=== PATIENT | female | born 1955 | race Caucasian/White ===

== ENCOUNTER 2022-07-23 09:31 | Outpatient (CLI) | payer MEDICARE, BC, SELFPAY ==
--- NOTE | 2022-07-23 09:45 | CRLHL7_ITS ---
For Patients: As a result of the Century Cures Act, medical imaging exams and procedure reports are released immediately into your electronic medical record. You may view this report before your referring provider. If you have questions, please contact your health care provider. BILATERAL SCREENING MAMMOGRAM WITH COMPUTER-AIDED DETECTION AND TOMOSYNTHESIS TECHNIQUE: CC and MLO views were obtained. These mammographic images have been obtained using full-field digital technique. These mammographic images were interpreted with the benefit of computer-aided detection. Breast tomosynthesis was used in this interpretation. COMPARISON FILM: 05/13/21, 04/05/20, 09/20/18. FINDINGS: There are scattered areas of fibroglandular density. IMPRESSION: There is no radiographic evidence for malignancy. ASSESSMENT: BI-RADS Category 2: Benign RECOMMENDATION: Routine screening mammogram in 1 year. A lay language report of this examination will be provided to the patient. ZION MENARD M.D. Diagnostic/Nuclear Medicine Radiologist [email or web address] Transcribed: 2:[address]/Dictated by: Zion Menard MD @ 07/23/2022 11:26:00 AM (Electronically Signed)
== END 2022-07-23 09:32 | disposition home or self-care (01) ==
LOC: MAMMO 09:38
PROVIDERS: PCP Internal Medicine; Visit Provider Internal Medicine
DX: Z12.31 Encounter for screening mammogram for malignant neoplasm of breast (principal)
CPT/HCPCS: 77063; 77067

== ENCOUNTER 2022-12-15 09:18 | Outpatient (CLI) | payer MEDICARE, BC, SELFPAY | END 2022-12-15 09:19 | disposition home or self-care (01) | LOC: NFLDREF 21:40 | PROVIDERS: PCP Internal Medicine; Referring Provider Internal Medicine; Visit Provider Internal Medicine | DX: E03.9 Hypothyroidism, unspecified (principal); E78.5 Hyperlipidemia, unspecified; I10 Essential (primary) hypertension | CPT/HCPCS: 80053; 80061; 84443 ==

== ENCOUNTER 2022-12-29 09:21 | Outpatient (CLI) | payer MEDICARE, BC, SELFPAY | END 2022-12-29 09:22 | disposition home or self-care (01) | LOC: NFLDREF 01-01 09:56 | PROVIDERS: PCP Internal Medicine; Referring Provider Internal Medicine; Visit Provider Internal Medicine | DX: R32 Unspecified urinary incontinence (principal); D36.9 Benign neoplasm, unspecified site; I10 Essential (primary) hypertension; E03.9 Hypothyroidism, unspecified | CPT/HCPCS: 87086 ==

== ENCOUNTER 2023-03-15 08:26 | Outpatient (CLI) | payer MEDICARE, BC, SELFPAY ==
--- NOTE | 2023-03-15 06:33 | W.ANESCHARGE ---
Anesthesia Charges Start Date/Time Anesthesia Start Date: 03/15/23 Anesthesia Start Time: 09:10 Stop Date/Time Anesthesia Stop Date: 03/15/23 Anesthesia Stop Time: 09:35
--- NOTE | 2023-03-15 06:34 | PM.ANHP ---
HPI - Pre-Anesthesia History of Present Illness Time Seen by Provider: 08:48 Date Seen: 03/15/23 Date of service: 03/15/23 Source: patient and old records reviewed Review of Systems Status of ROS Reports: 10 or more systems reviewed and unremarkable except as noted in History and below [facility] Medical History (Updated 12/29/22 @ 10:03 by Anthony Madison MD) Tubular adenoma ?D36.9 - Benign neoplasm, unspecified site (ICD-10) Urinary incontinence ?R32 - Unspecified urinary incontinence (ICD-10) Hip pain ?M25.559 - Pain in unspecified hip (ICD-10) Hypertension ?I10 - Essential (primary) hypertension (ICD-10) Inflammation of right ear canal ?H60.91 - Unspecified otitis externa, right ear (ICD-10) Vulvar dermatitis ?L30.9 - Dermatitis, unspecified (ICD-10) Osteoarthritis (02/22/12) ?M19.90 - Unspecified osteoarthritis, unspecified site (ICD-10) Obesity ?E66.9 - Obesity, unspecified (ICD-10) Hypothyroidism (02/22/12) ?E03.9 - Hypothyroidism, unspecified (ICD-10) Hyperlipidemia (02/22/12) ?E78.5 - Hyperlipidemia, unspecified (ICD-10) Essential hypertension ?I10 - Essential (primary) hypertension (ICD-10) Depression ?F32.A - Depression, unspecified (ICD-10) Surgical History (Updated 04/02/22 @ 12:23 by Genia Nunez PA-C) History of nasal surgery ?Z98.890 - Other specified postprocedural states (ICD-10) S/P total knee arthroplasty ?Z96.659 - Presence of unspecified artificial knee joint (ICD-10) History of total knee replacement (02/22/12) ?Z96.659 - Presence of unspecified artificial knee joint (ICD-10) History of total hysterectomy (02/22/12) ?Z90.710 - Acquired absence of both cervix and uterus (ICD-10) History of carpal tunnel repair ?Z98.890 - Other specified postprocedural states (ICD-10) Social History Smoking Status: Never smoker Little interest or pleasure in doing things: more than half the days Feeling down, depressed, or hopeless: several days Meds Home Medications and Allergies Home Medications Medication Instructions Recorded Confirmed Type cholecalciferol (vitamin D3) 50 4,000 unit PO DAILY 04/02/22 12/29/22 History mcg (2,000 unit) tablet triamcinolone acetonide 0.1 % 1 applic topical QDAY PRN 08/12/22 12/29/22 History topical cream Allergies Allergy/AdvReac Type Severity Reaction Status Date / Time morphine Allergy Mild Vomiting Verified 12/29/22 09:38 Exam Const Documenting provider has reviewed patient's vital signs: yes Common normals: no apparent distress, oriented x3, healthy appearing, alert and well nourished General appearance: cooperative and comfortable Orientation/consciousness: Yes awake HENMT Common normals: normocephalic Head and scalp: normocephalic Neck & C-Spine Common normals: full ROM Chest Chest: symmetrical chest wall rise Resp Common normals: normal respiratory effort, no retractions, no use of accessory muscles and clear to auscultation bilaterally Auscultation: clear to auscultation bilaterally Cardio Common normals: regular rate, regular rhythm, S1 normal heart sound, S2 normal heart sound and no murmurs Rate: regular rate Rhythm: regular rhythm Heart sounds: S1 normal and S2 normal Neuro Common normals: oriented x3 Sensorium/orientation: awake and alert Assessment and Plan Assessment and plan (1) Tubular adenoma: Status: Acute Plan no contraindication to proceeding with sedation for endoscopy
--- NOTE | 2023-03-15 09:36 | W.ANESCHARGE ---
Anesthesia Charges Start Date/Time Anesthesia Start Date: 03/15/23 Anesthesia Start Time: 09:10 Stop Date/Time Anesthesia Stop Date: 03/15/23 Anesthesia Stop Time: 09:35
== END 2023-03-15 08:27 | disposition home or self-care (01) ==
LOC: OP CLINIC 08:27
PROVIDERS: PCP Internal Medicine; Visit Provider Internal Medicine
DX: Z12.11 Encounter for screening for malignant neoplasm of colon (principal); Z86.010 Personal history of colon polyps
CPT/HCPCS: 00812; 45378; J2704

== ENCOUNTER 2023-03-30 08:00 | Outpatient (RCR) | payer MEDICARE, BC, SELFPAY ==
--- NOTE | 2023-01-12 13:15 | PT.OPEX ---
PT [place] Outpatient Eval PT [facility] Outpatient Eval Start: 01/12/23 08:05 Freq: Status: Active Protocol: Document 01/12/23 08:06 ENM (Rec: 01/12/23 12:20 ENM [id number]) E-signed By Wen Cummings, DPT Physical Therapy Outpatient Evaluation Insurance Information Recert Due Date 04/06/23 Insurance Name Medicare B Medical Diagnosis pain in unspecified hip Treating Diagnosis right leg pain, decreased core strength, decreased glute strength, impaired gait, Referring MD [place] Subjective Subjective Patient presents to PT for complaint of right hip and low back pain that has been present since September. Patient was assessed for hip pains back in September and had an xray of lumbar spine/ hip region. Imaging showed degenerative disc L4-5 with slight anterolisthesis L5-S1 and mild degenerative narrowing and spurring of bilateral hips. She has been seeing a chiropractor which has helped her with the sharp pains she used to have. She states that with walking and bending more the pains will be worse. Walking on harder surfaces is worse. 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 Doesn't seem to bother with sitting. The right leg used to give out but not as much anymore. Pains start in right glute and then will go down the side of the leg. She has been very cautious of her mobility because she doesn't want to aggravate things. 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 Objective Other/Pertinent Objective ROM: FF repeated at 4 feeling stretch discomfort in right glute EXT hesitant to perform WNL no pains SB WNL no pains ROT + for right anterior thigh pains when going towards L, having back discomfort when going towards R hip PROM flexion + for pain in anterior thigh WNL IR + for discomfort in anterior thigh WNL ER WNL B strength: 5xSTS 22.46s without use of arms, slow to perform and hesitant due to weakness hip extensors L 4-/5 R 3+/5 hip abductors L 4/5 R 4-/5 hip flexors L 4+/5 R 4-/5 with slight strain to perform knee extensors L 4+/5 R 4-/5 ankle DF 4+/5 B difficulty with core initiation in supine palpation/joint mobility: CPA no pain slightly hypomobile R UPA lumbar spine at L4-5 pain in back but no pain in the glutes no pain to palpation of anterior or posterior right glute musculature gait/balance: Patient ambulating with antalgic gait pattern with decreased WB of RLE special tests: slump + for increased tightness on R compared to L, no reproduction of glute or thigh symptoms SLR - Functional Test Performed & Score SHIRA: 50 28% moderate disability Assessment Assessment/Impression Patient is a 67 year old female presenting with right glute/ hip pain and weakness that started a few months ago. Their primary complaint is of not being able to bend or walk longer distances due to the pains. Pains were very significant initially and then improved with time as well as going to the chiropractor. Now the pain is more of an ache that will be aggravated with increased activity. Upon assessment patients concordant pains brought on with forward flexion, L lumbar rotation, right hip IR and flexion, and right PAs L4-5. Special testing + slump, - for SLR. Patient displays global RLE weakness most significant in proximal hip at flexors, extensors and abductors. Symptoms seem to be discogenic in nature. Nataliya would greatly benefit from skilled PT to address impairments stated above in order to perform all functional mobility, work duties and recreational activities without significant discomfort or difficulty. Primary Functional Limitations doing more activity, walking, bending Plan of Care Rehabilitation Potential Good Physical Therapy Goals In 6-7 visits: 1. Patient will be IND with HEP and self management of symptoms 2. Patient will display pain free lumbar ROM WNL in order to perform all household duties 3. Patient will be able to walk >30 mins with less than 2 /10 pain for improved walking tolerance 4. Patient will improve global right hip strength to 4/5 or greater in order to progress activity levels 5. Patient will improve SHIRA from 28% to 18% (MDC 10% ) to demonstrate improvements in QOL Coordination/Communication With Referral Source Treatment Plan/Direct Interventions Gait Training,Ice/Cold/ Vasopneumatic,Joint Mobilization,Manual Therapy, Neuromuscular Re-ed,Self-Care/ Home Management,Therapeutic Activities,Therapeutic Exercises Frequency/Duration 1x a week for 6-7 visits Patient Will Be Discharged From Therapy Completion of LTG(s), Independent w/HEP Evaluation Billing Untimed Code Treatment Minutes 39 Complexity Low Certification Information Initial Certification Date 01/12/23 Ending Certification Date 04/06/23 Provider Signature Shows Agreement With POC & Medical Necessity Physician Signature & Date Requested Please Sign/Date Here Physician Comment/Change : Physician NPI Number #
== END 2023-04-12 14:44 | disposition home or self-care (01) ==
PROVIDERS: PCP Internal Medicine; Visit Provider Internal Medicine
DX: M25.559 Pain in unspecified hip (principal); Z51.89 Encounter for other specified aftercare
CPT/HCPCS: 97110; 97161

== ENCOUNTER 2023-12-31 09:33 | Outpatient (CLI) | payer MEDICARE, BC, SELFPAY | END 2023-12-31 09:34 | disposition home or self-care (01) | LOC: NFLDREF 01-05 12:56 | PROVIDERS: PCP Internal Medicine; Referring Provider Internal Medicine; Visit Provider Internal Medicine | DX: E03.9 Hypothyroidism, unspecified (principal); E78.5 Hyperlipidemia, unspecified; I10 Essential (primary) hypertension | CPT/HCPCS: 80053; 80061; 84443 ==

== ENCOUNTER 2024-03-27 15:24 | Outpatient (CLI) | payer MEDICARE, BC, SELFPAY | END 2024-03-27 15:25 | disposition home or self-care (01) | LOC: NFLDUCREF 15:26 | PROVIDERS: PCP Internal Medicine; Visit Provider Nurse Practitioner Family | DX: R53.83 Other fatigue (principal) | CPT/HCPCS: 87086; 87186 ==

== ENCOUNTER 2024-11-14 09:52 | Outpatient (CLI) | payer MEDICARE, BC, SELFPAY | END 2024-11-14 09:53 | disposition home or self-care (01) | PROVIDERS: PCP Internal Medicine; Visit Provider Internal Medicine | DX: E78.5 Hyperlipidemia, unspecified (principal); E03.9 Hypothyroidism, unspecified; I10 Essential (primary) hypertension; E66.9 Obesity, unspecified | CPT/HCPCS: 80053; 80061; 84443 ==

== ENCOUNTER 2025-06-29 14:02 | Outpatient (CLI) | payer MEDICARE, BC, SELFPAY | END 2025-06-29 14:03 | disposition home or self-care (01) | LOC: NFLDREF 06-30 20:48 | PROVIDERS: PCP Internal Medicine; Referring Provider Internal Medicine; Visit Provider Nurse Practitioner Family | DX: N30.01 Acute cystitis with hematuria | CPT/HCPCS: 87086 ==